=== PATIENT | female | born 1950 | race Two or more races ===

== ENCOUNTER 2019-03-03 10:22 | Emergency (ER) | payer OTHER ==
[~2019-03-03] VITALS: Ht 152.4 cm; Wt 55.4 kg
--- NOTE | 2019-03-03 10:42 | NUR ---
PT IS NIUEAN SPEAKING. DAUGHTER AND GRANDSON IN ROOM TO ASSIST W/ TRANSLATING. PT REPORTS SHE FELL FLAT ON TO STOMACH ON FRIDAY, LANDED ON ELBOWS & STOMACH. C/O UPPER ABD PAIN RADIATING TO RT LAT RIB AREA. ECCHYMOSIS TO BILAT PATELLAS. DENIES VOMITING. TOOK AFGHAN PAIN MED YESTERDAY (LAST DOSE LAST NOC). NO FOOD INTAKE TODAY - JUST SODA. RIB PAIN WORSENS W/ DEEP BREATHING, COUGH, SNEEZE.
--- NOTE | 2019-03-03 10:54 | NUR ---
JAQUAN SALDAÑA BS FOR EXAM
--- NOTE | 2019-03-03 10:54 | NUR ---
PT RATES PAIN AT 9/10.
[2019-03-03] MEDS ORDERED: SODIUM CHLORIDE FLUSH 10ML SYR IVF ONE (11:00)
[2019-03-03] MEDS ORDERED: ONDANSETRON 2MG/ML, 2ML IVPush ONE (11:00)
[2019-03-03] MEDS ORDERED: MORPHINE SULFATE 4 MG/ML, 1ML IVPush PRN (11:00)
[2019-03-03] MEDS ORDERED: ONDANSETRON 2MG/ML, 2ML ONE (11:20)
[2019-03-03] MEDS ORDERED: MORPHINE SULFATE 4 MG/ML, 1ML ONE (11:21)
[2019-03-03 11:22] LABS: BASOPHILS # (AUTO) 0.09 x10^3/uL (0-0.1); BASOPHILS % (AUTO) 1 % (0-1); EOSINOPHILS # (AUTO) 0.37 x10^3/uL (0-0.4); EOSINOPHILS % (AUTO) 6 % (1-7); LYMPHOCYTES # (AUTO) 2.01 x10^3/uL (1-3.4); LYMPHOCYTES % (AUTO) 30 % (22-44); MD NO; MEAN CORPUSCULAR HEMOGLOBIN 30.2 pg (27.0-34.8); MEAN CORPUSCULAR HGB CONC 32.5 g/dL (32.4-35.8); MEAN CORPUSCULAR VOLUME 92.9 fL (80-100); MEAN PLATELET VOLUME 10.5 fL (7.4-10.4); MONOCYTES # (AUTO) 0.59 x10^3/uL (0.2-0.8); MONOCYTES % (AUTO) 9 % (2-9); NEUTROPHILS # (AUTO) 3.56 x10^3/uL (1.8-6.8); NEUTROPHILS % (AUTO) 54 % (42-75); PLATELET COUNT 256 x10^3/uL (130-400); RED BLOOD COUNT 4.61 x10^6/uL (3.82-5.3); RED CELL DISTRIBUTION WIDTH 12.4 % (9.6-15.2)
[2019-03-03 11:33] LABS: ALBUMIN 3.7 g/dL (3.4-5.0); ANION GAP 5 mmol/L (5-15); CALCIUM 8.9 mg/dL (8.5-10.1); CHLORIDE 112 mmol/L (98-107)
--- NOTE | 2019-03-03 11:34 | NUR ---
ZOFRAN & MORPHINE GIVEN PER EMAR. PT RESTING QUIETLY W/ SIDE RAIILS UP X2, CALL LIGHT W/IN REACH, FAMILY AT BS.
[2019-03-03 11:37] LABS: ALANINE AMINOTRANSFERASE 19 U/L (12-78); ALKALINE PHOSPHATASE 96 U/L (45-117); BILIRUBIN,TOTAL 0.7 mg/dL (0.2-1.0); CREATININE 0.73 mg/dL (0.55-1.02); TOTAL PROTEIN 7.4 g/dL (6.4-8.2)
[2019-03-03] MEDS ORDERED: OMNIPAQUE 350 MG/ML, 100ML BOTTLE ONE (12:36)
--- NOTE | 2019-03-03 12:42 | NUR ---
CT DONE. PT RESTING QUIETLY ON GURNEY, SIDE RAILS UP X2, CALL LIGHT W/IN REACH, FAMILY AT BS. PT REPORTS PAIN IS RETURNING - WILL NOTIFY ERP
--- NOTE | 2019-03-03 12:46 | NUR ---
PT INFORMED OF ADDITIONAL MORPHINE ORDER. PT REFUSING PAIN MED AT THIS TIME. REPORTS MINIMAL PAIN WHILE LYING STILL; WORSENS W/ MOVEMENT.
[2019-03-03 14:03] VITALS: BP 136/67
== END 2019-03-03 13:57 | disposition home or self-care (01) ==
LOC: ED 13:52
DX: S20.211A Contusion of right front wall of thorax, initial encounter (principal); S80.02XA Contusion of left knee, initial encounter; S80.01XA Contusion of right knee, initial encounter; S30.1XXA Contusion of abdominal wall, initial encounter; W01.0XXA Fall on same level from slipping, tripping and stumbling without subsequent striking against object, initial encounter; Y93.01 Activity, walking, marching and hiking; Y92.89 Other specified places as the place of occurrence of the external cause; Y99.8 Other external cause status
CPT/HCPCS: 36415; 71045; 74177; 80053; 83690; 85025; 96374; 96375; 99284; J2270; J2405; Q9967